=== PATIENT | male | born 2005 | race Caucasian/White ===

== ENCOUNTER 2024-11-05 08:13 | Emergency (ER) | payer OTHER, SELFPAY ==
[2024-11-05 08:25] VITALS: BP 156/86; PULSE 94; RESP 16; TEMP 37; O2SAT 100
--- NOTE | 2024-11-05 08:27 | ED.EAR ---
HPI - Ear Problem General Chief complaint: Ear Stated complaint: L EARACHE Time Seen by Provider: 11/05/24 08:27 Source: patient Mode of arrival: ambulatory Limitations: no limitations History of Present Illness HPI Narrative: 19-year-old male presents with complaint of clogged left ear with decreased hearing for approximately 2 days. Patient reports that he was sick with sinus congestion, postnasal drainage that has resolved. Had bilateral ear pressure 3 days ago, felt left ear pop in the middle the night and woke up with pus and blood on his pillow. Patient concerned that his ear drum perforated. Afebrile. All systems reviewed and negative except as noted above. Related Data Allergies Allergy/AdvReac Type Severity Reaction Status Date / Time No Known Allergies Allergy Verified 11/05/24 08:23 Review of Systems Review of Systems: CONSTITUTIONAL: Denies fever, chills, or sweats. EYES: Denies visual changes, redness, or discharge. ENT: Denies rhinorrhea, congestion, sore throat. Reports left ear clogged with decreased hearing CARDIOVASCULAR: Denies chest pain, palpitations, or edema. RESPIRATORY: Denies cough or dyspnea. GASTROINTESTINAL: Denies abdominal pain, nausea, vomiting, or diarrhea. GENITOURINARY: Denies dysuria or hematuria. SKIN: Denies rash or itching. MUSCULOSKELETAL: Denies back pain, joint pain, or myalgia. NEUROLOGIC: Denies headache, numbness, or weakness. PSYCHIATRIC: Denies anxiety or depression. All other systems reviewed are negative, except as documented in HPI. PMFSH Comments At time of signature, agree with nursing past medical, surgical, social and family history. There is no relevant family history pertinent to the presenting complaint. Exam Narrative: GENERAL: This is a well-nourished, well-developed patient, in no apparent distress. HEAD: normocephalic, atraumatic. EYES: PERRL. Sclera clear/white. Vision is grossly intact. EARS: External ears normal, auditory canals clear and without drainage, right TM normal. Left TM erythematous with purulent fluid, blood to ear canal, possible perforation. Hearing grossly intact. NOSE: External nose normal with no obvious nasal discharge, nares without redness, no rhinorrhea. THROAT: Mucous membranes moist, posterior pharynx clear. NECK: Neck supple, non-tender without lymphadenopathy, masses or thyromegaly. CARDIOVASCULAR: Regular rate and rhythm without murmurs, gallops, or rubs. RESPIRATORY: Clear to auscultation. Breath sounds equal bilaterally. No wheezes, rales, or rhonchi. SKIN: warm, Dry, intact with no suspicious lesions or rash, good texture and turgor. NEURO: awake, alert, and oriented to person, place and time. There were no obvious focal neurologic abnormalities. EXTREMITIES: No joint tenderness, effusion, or edema noted. Course Course Level of Care: Express Care Visit Vital Signs Vital signs: Vital Signs Temperature 37.0 C 11/05/24 08:25 Pulse Rate 94 11/05/24 08:25 Respiratory Rate 16 11/05/24 08:25 Blood Pressure 156/86 H 11/05/24 08:25 Pulse Oximetry 100 11/05/24 08:25 Oxygen Delivery Room Air 11/05/24 08:25 Temperature 37.0 C 11/05/24 08:25 Pulse Rate 94 11/05/24 08:25 Respiratory Rate 16 11/05/24 08:25 Blood Pressure 156/86 H 11/05/24 08:25 Pulse Oximetry 100 11/05/24 08:25 Oxygen Delivery Room Air 11/05/24 08:25 Reviewed Medical Decision Making MDM Narrative Medical decision making narrative: Possible perforation of left TM but not obvious due to blood and purulent drainage to ear canal. Will treat with antibiotics and recommend follow-up with qualitative executive researcher. Patient is aware of diagnosis, understands and agrees to treatment plan. Anticipatory guidance given. Patient agrees to follow-up as directed and is aware of reasons to seek care at the emergency department. Portions of this record may have been created with voice recognition software Vital Signs Vital Signs: Vital Signs Temperature 37.0 C 11/05/24 08:25 Pulse Rate 94 11/05/24 08:25 Respiratory Rate 16 11/05/24 08:25 Blood Pressure 156/86 H 11/05/24 08:25 Pulse Oximetry 100 11/05/24 08:25 Oxygen Delivery Room Air 11/05/24 08:25 Temperature 37.0 C 11/05/24 08:25 Pulse Rate 94 11/05/24 08:25 Respiratory Rate 16 11/05/24 08:25 Blood Pressure 156/86 H 11/05/24 08:25 Pulse Oximetry 100 11/05/24 08:25 Oxygen Delivery Room Air 11/05/24 08:25 Discharge Plan Discharge Clinical Impression: Acute otitis media of left ear with perforated tympanic membrane Patient Disposition: Home, Self-Care Condition: Stable Instructions: Antibiotic Form, Ruptured Eardrum (ED), Ear Infection (ED) Additional Instructions: Take antibiotic as prescribed until gone. Take ibuprofen or Tylenol every 6-8 hours as needed for pain. Follow-up with qualitative executive researcher at next available appointment. Patient Language: Green[place]ic Prescriptions: New amoxicillin 875 mg tablet 875 mg PO Q12H 10 Days Qty: 20 0RF ofloxacin 0.3 % drops 10 drp LEFT EAR DAILY 7 Days Qty: 5 0RF Follow-up/Referrals: Mera,Silvio [Other] Bette Lopez MD [Physician] - (Schedule follow-up appointment with qualitative executive researcher) Time of Disposition: 08:33
== END 2024-11-05 08:41 | disposition home or self-care (01) ==
PROVIDERS: Emergency Provider Nurse Practitioner Family
DX: H66.92 Otitis media, unspecified, left ear (principal); H72.92 Unspecified perforation of tympanic membrane, left ear
CPT/HCPCS: 99203; G0463